=== PATIENT | female | born 1995 | race African-American/Black ===

== ENCOUNTER 2018-10-04 12:11 | Emergency (ER) | payer OTHER ==
[~2018-10-04] VITALS: Ht 188 cm; Wt 104.3 kg
[2018-10-04 12:11] VITALS: BP 116/72
--- NOTE | 2018-10-04 12:37 | PHYS DOC ---
Past History Past Medical History: No Pertinent History Past Surgical History: No Surgical History Smoking: Quit Less Than 1 Year Alcohol Use: None Drug Use: None Adult General Chief Complaint Chief Complaint: VAGINAL BLEEDING HPI HPI Patient is a 21-year-old female presents with lower pelvic pain and vaginal bleeding. This started yesterday. Patient reports being approximately 11 weeks with last menstrual period of July 13, 2018. Patient has irregular menses but had recently stopped taking control pills. Patient denies any back pain or flank pain. She reports that the bleeding has improved since yesterday. No nausea or vomiting.[] Review of Systems Review of Systems Constitutional: Denies fever or chills [] Eyes: Denies change in visual acuity, redness, or eye pain [] HENT: Denies nasal congestion or sore throat [] Respiratory: Denies cough or shortness of breath [] Cardiovascular: No chest pain or palpitations[] GI: Denies nausea, vomiting, bloody stools or diarrhea [] : Denies dysuria or hematuria, see history of present illness [] Musculoskeletal: Denies back pain or joint pain [] Integument: Denies rash or skin lesions [] Neurologic: Denies headache, focal weakness or sensory changes [] Endocrine: Denies polyuria or polydipsia [] All other systems were reviewed and found to be within normal limits, except as documented in this note. Allergies Allergies Allergies Coded Allergies Type Severity Reaction Last Updated Verified No Known Drug Allergies 10/04/18 No Physical Exam Physical Exam Constitutional: Well developed, well nourished, no acute distress, non-toxic appearance. [] HENT: Normocephalic, atraumatic, bilateral external ears normal, oropharynx moist, no oral exudates, nose normal. [] Eyes: PERRLA, EOMI, conjunctiva normal, no discharge. [] Neck: Normal range of motion, no tenderness, supple, no stridor. [] Cardiovascular:Heart rate regular rhythm, no murmur [] Lungs & Thorax: Bilateral breath sounds clear to auscultation [] Abdomen: Bowel sounds normal, soft, no tenderness, no masses, no pulsatile masses. [] Skin: Warm, dry, no erythema, no rash. [] Back: No tenderness, no CVA tenderness. [] Extremities: No tenderness, no cyanosis, no clubbing, ROM intact, no edema. [] Neurologic: Alert and oriented X 3, normal motor function, normal sensory function, no focal deficits noted. [] Psychologic: Affect normal, judgement normal, mood normal. [] EKG EKG [] Radiology/Procedures Radiology/Procedures PROCEDURE: OB <14 WKS W/TV OB <14 WKS W/TV History: Vaginal bleeding Comparison: None. Findings: Multiple transabdominal sonographic images of pelvis are submitted. Uterus measured 10.6 x 5 x 6.5 cm. There is single intrauterine gestational sac. Transvaginal ultrasound: Multiple transvaginal sonographic images of pelvis are submitted. There is a single intrauterine gestational sac with identifiable yolk sac and pole. Placenta and anatomy are not well visualized at this age of . There is demonstrable cardiac activity 130 bpm. [place]-rump length measurement of 1.12 cm corresponds with 7 weeks 2 days. Gestational sac measurement of 2.1 cm corresponds with 7 weeks 0 days. Adjusted ultrasound age is 7 weeks 1 day with estimated delivery date of 05/12/2019. LMP age is 9 weeks 0 days with estimated delivery date 05/09/2019. Gestational sac morphology is within normal limits. Cervix measured 3.2 cm. Right ovary measured 3.6 x 2.1 x 1.9 cm, normal color flow. Left ovary measured 2.9 x 1.7 x 1.6 cm with normal color flow. There is very minimal free fluid. Impression: 1. There is a single viable intrauterine , adjusted ultrasound age of 7 weeks 1 day with estimated delivery date 05/22/2019. There is very minimal free fluid. [] Course & Med Decision Making Course & Med Decision Making Pertinent Labs and Imaging studies reviewed. (See chart for details) Course: Patient arrived, was placed in bed, and tolerated exam well. She was transported to and from [facility] without any complications. After return of the laboratory and imaging findings, these were discussed with the patient voiced understanding. All questions were answered. Patient was discharged in improved condition. Medical decision making: This appears to be a threatened miscarriage. There is no evidence of an ectopic . No evidence of significant electrolyte abnormalities nor anemia. No evidence of urinary tract infection nor ketosis.[] Dragon Disclaimer Dragon Disclaimer This electronic medical record was generated, in whole or in part, using a voice recognition dictation system. Departure Departure: Impression: Primary Impression: Threatened miscarriage Disposition: HOME, SELF-CARE Condition: IMPROVED Referrals: ARELY RITTER MD (PCP) Follow-up in 2 days Patient Instructions: Threatened Miscarriage Additional Instructions: Follow-up with your regular doctor in 2 days. Nothing in the vagina until cleared by your regular doctor or [employer], no tampons, no douching, no sexual intercourse. Return to the ER if worsening pain or bleeding. Scripts Acetaminophen (TYLENOL) 325 Mg Tablet 1-2 TAB PO QID for pain, #60 TAB 0 Refills Prov: LEILA NUNEZ DO 10/04/18 LEILA NUNEZ DO Oct 04, 2018 12:37
[2018-10-04 13:12] LABS: BASO # 0.1 x10^3/uL (0.0-0.2); BASO % 1 % (0-3); EOS # 0.1 x10^3/uL (0.0-0.7); EOS % 1 % (0-3); HEMATOCRIT 37.4 % (36.0-47.0); HEMOGLOBIN 12.6 g/dL (12.0-15.5); LYMPH % 21 % (24-48); MEAN CORPUSCULAR HEMOGLOBIN 28 pg (25-35); MEAN CORPUSCULAR HGB CONC 34 g/dL (31-37); MEAN CORPUSCULAR VOLUME 82 fL (79-100); MONO # 0.7 x10^3/uL (0.0-1.1); MONO % 8 % (0-9); NEUT # 6.3 x10^3uL (1.8-7.7); NEUT % 69 % (31-73); PLATELET COUNT 294 x10^3/uL (140-400); RED BLOOD COUNT 4.56 x10^6/uL (3.50-5.40); RED CELL DISTRIBUTION WIDTH 14.3 % (11.5-14.5); WHITE BLOOD COUNT 9.2 x10^3/uL (4.0-11.0)
[2018-10-04 13:28] LABS: CALCIUM 9.4 mg/dL (8.5-10.1); CREATININE 0.9 mg/dL (0.6-1.0); GFR 78.3; POTASSIUM 3.5 mmol/L (3.5-5.1); TOTAL BILIRUBIN 0.4 mg/dL (0.2-1.0); TOTAL PROTEIN 8.2 g/dL (6.4-8.2)
--- NOTE | 2018-10-04 14:51 | RAD ---
OB <14 WKS W/TV History: Vaginal bleeding Comparison: None. Findings: Multiple transabdominal sonographic images of pelvis are submitted. Uterus measured 10.6 x 5 x 6.5 cm. There is single intrauterine gestational sac. Transvaginal ultrasound: Multiple transvaginal sonographic images of pelvis are submitted. There is a single intrauterine gestational sac with identifiable yolk sac and pole. Placenta and anatomy are not well visualized at this age of . There is demonstrable cardiac activity 130 bpm. [place]-rump length measurement of 1.12 cm corresponds with 7 weeks 2 days. Gestational sac measurement of 2.1 cm corresponds with 7 weeks 0 days. Adjusted ultrasound age is 7 weeks 1 day with estimated delivery date of 05/12/2019. LMP age is 9 weeks 0 days with estimated delivery date 05/09/2019. Gestational sac morphology is within normal limits. Cervix measured 3.2 cm. Right ovary measured 3.6 x 2.1 x 1.9 cm, normal color flow. Left ovary measured 2.9 x 1.7 x 1.6 cm with normal color flow. There is very minimal free fluid. Impression: 1. There is a single viable intrauterine , adjusted ultrasound age of 7 weeks 1 day with estimated delivery date 05/22/2019. There is very minimal free fluid. Electronically signed by: Jua nMiguel Walters MD (10/04/2018 2:48 PM) [facility]
[2018-10-04] MEDS ORDERED: ACET325T9 PO (15:22)
[2018-10-04 15:26] LABS: AMORPHOUS SEDIMENT,UR PRESENT /HPF; BACTERIA,URINE 0 /HPF (0-FEW); BILIRUBIN,URINE NEG (NEG); CLARITY,URINE CLEAR; COLOR,URINE STRAW; GLUCOSE,URINE NEG (NEG); NITRITE,URINE NEG (NEG); RBC,URINE RARE /HPF (0-2); SQUAMOUS EPITHELIAL CELL,UR OCC /LPF; UROBILINOGEN,URINE 0.2 mg/dL (0.2 mg/dL)
== END 2018-10-04 15:28 | disposition home or self-care (01) ==
LOC: ER 12:11
DX: O20.0 Threatened abortion (principal); Z3A.01 Less than 8 weeks gestation of pregnancy; Z87.891 Personal history of nicotine dependence
CPT/HCPCS: 36415; 76801; 76817; 80053; 81001; 84702; 85025; 86900; 86901; 87491; 87591; 99285; Q0111